=== PATIENT | female | born 1980 | race African-American/Black ===

== ENCOUNTER 2024-07-10 19:12 | Emergency (ER) | payer MEDICAID ==
[~2024-07-10] VITALS: Ht 188 cm; Wt 66.0 kg
[2024-07-10 19:53] VITALS: BP 160/104; RESP 18; O2SAT 99
[2024-07-10 19:54] VITALS: PULSE 105; O2SAT 100
[2024-07-10] MEDS ORDERED: ACET-2708 MT (21:01)
[2024-07-10 21:35] VITALS: TEMP 98.2
[2024-07-10] MEDS: ACETAMINOPHEN 325MG TABLET PO ONE (21:35)
== END 2024-07-10 21:37 | disposition home or self-care (01) ==
LOC: ER 19:12
DX: M54.50 Low back pain, unspecified (principal)
CPT/HCPCS: 99282